=== PATIENT | female | born 1985 | race Caucasian/White ===

== ENCOUNTER 2019-07-26 19:59 | Emergency (ER) | payer BC, SELFPAY ==
--- NOTE | 2019-07-26 19:58 | ECG_ITS ---
APPROVED REPORT Exam: Resting ECG HR:78 bpm ECG Measurements Heart Rate 78 AXES MD 124 P 58 QRSd 86 QRS 42 QT 364 T 49 QTc 414 <Conclusion> Normal sinus rhythm Possible Left atrial enlargement Borderline ECG Electronically signed by : Chapincito Olvera, 07/28/2019 17:13:53
[2019-07-26 20:00] VITALS: BP 134/92; PULSE 84; RESP 16; TEMP 37.4; O2SAT 97; BMI 25.6
[2019-07-26 20:08] VITALS: BP 134/92; PULSE 78; RESP 18; O2SAT 97
--- NOTE | 2019-07-26 20:09 | XR_ITS ---
PROCEDURE: XR CHEST 2V CLINICAL HISTORY: chest pain COMPARISON: No exams were available for comparison FINDINGS: The cardiomediastinal silhouette and pulmonary vascularity are within normal limits. The lungs are clear without infiltrates, suspicious nodules, or pleural effusions. No acute bony abnormalities. IMPRESSION: No acute findings. Dictated by: Devon Hansen MD 07/27/2019 08:44 Electronically signed by Devon Hansen MD in [place] 07/27/2019 08:45
--- NOTE | 2019-07-26 20:38 | HMH.EDCP ---
ED Disposition Clinical Impression: Atypical chest pain Disposition: Home, Self-Care Condition on Discharge: Good Instructions: DI for Atypical Chest Pain Additional Instructions: fluids and see pcp for follow up Prescriptions: Pantoprazole Sodium [Protonix 40mg tablet] 40 mg PO DAILY 30 Days #30 tab Transmission Status: Pending to [facility] Referrals: Provider,Referral, [Referring] - - Critical Care Critical Care Time: No Attestation: On 07/26/19, the high probability of a clinically significant, sudden or life threatening deterioration of the following system(s) required my full and direct attention, intervention and personal management. The time I documented below is in addition to time spent performing reported procedures but includes the following listed in this critical care notation. Medical Decision Making - Medical Records Medical records reviewed: Yes: I reviewed the patient's medical records. - Vic Inquiry Pt receiving controlled substance: No Vital Signs: 07/26/19 20:00 07/26/19 20:08 07/26/19 20:44 Temperature 99.4 F Temperature Source Oral Pulse Rate [Left Radial] 84 79 Pulse Rate [Left] 78 Respiratory Rate 16 18 18 Blood Pressure [Right Arm] 134/92 H 134/92 H 113/72 Blood Pressure Mean [Right Arm] 106 106 85 Blood Pressure Source [Right Arm] Automatic Cuff Blood Pressure Position [Right Arm] Sitting 02 Sat by Pulse Oximetry 97 97 97 Oxygen Delivery Method Room Air Room Air - Lab Data Lab results reviewed: Yes: I reviewed the patient's lab results. Lab Results 07/26/19 20:38: WBC 9.8, RBC 4.81, Hgb 14.7, Hct 42.2, MCV 87.6, MCH 30.6, MCHC 35.0, RDW 13.3, Plt Count 202, MPV 8.2, Neut % (Auto) 59.1, Lymph % (Auto) 33.7, [place] % (Auto) 5.0, Eos % (Auto) 1.4, Baso % (Auto) 0.7, Neut # (Auto) 5.8, Lymph # (Auto) 3.3, [place] # (Auto) 0.5, Eos # (Auto) 0.1, Baso # (Auto) 0.1 07/26/19 20:38: Sodium 141, Potassium 3.7, Chloride 103, Carbon Dioxide 28, Anion Gap 13.7, BUN 23 H, Creatinine 0.80, Estimated Creat Clear 102, Estimated GFR 84, Est GFR ( Amer) 101, Glucose 120 H, Calcium 9.3, Troponin I < 0.01 Result diagrams: 07/26/19 20:38 07/26/19 20:38 Orders (Tests/Meds): ED MEDICATIONS Generic Name Dose Route Start Last Admin Trade Name Freq PRN Reason Stop Dose Admin Sodium Chloride 1,000 mls @ 999 mls/hr 07/26/19 20:05 07/26/19 20:06 Sod Chlor 0.9% 1000ml Bag IV 07/26/19 21:05 999 mls/hr .Q1H1M YAKOV Administration Sodium Chloride 8 ml 07/26/19 21:06 07/26/19 21:09 Sodium Chloride 0.9% 10ml Vial IV 08/25/19 21:05 8 ml NEEDED PRN Administration dilute pepcid Discontinued Medications Generic Name Dose Route Start Last Admin Trade Name Freq PRN Reason Stop Dose Admin Aspirin 324 mg 07/26/19 20:05 07/26/19 20:06 Aspirin 81mg Chewable Tablet PO 07/26/19 20:06 324 mg ONCE ONE Administration Famotidine 20 mg 07/26/19 21:06 07/26/19 21:08 Pepcid 20mg/2ml Vial IV 07/26/19 21:07 20 mg ONCE ONE Administration Metoclopramide HCl 10 mg 07/26/19 21:06 07/26/19 21:08 Reglan 10mg/2ml Vial IVP 07/26/19 21:07 10 mg ONCE ONE Administration ORDERS Category Date Time Status Chest XR 2 view (NOT portable) [XR chest 2V] Stat Exams 07/26/19 20:09 Taken Troponin I Q3H Lab 07/26/19 23:15 Ordered Troponin I Q3H Lab 07/27/19 02:15 Ordered - Radiology Data #1 Image(s): Chest Image Reviewed: Yes I reviewed the patient's radiology image Preliminary Findings: Normal/NAD - ECG Data Tracing #1 I reviewed this ECG and interpreted as documented below: Normal Sinus Rhythm: Yes Ischemic changes: non-specific ST-T wave changes - Reevaluation(s) Time: 21:45 Reevaluation #1: feels better Chest Pain HPI - General Chief Complaint: Chest Pain Stated Complaint: chest pain Time Seen by Provider: 07/26/19 20:10 Mode of Arrival: Ambulatory Source of Information: [facility]
[2019-07-26 20:44] VITALS: BP 113/72; PULSE 79; RESP 18; O2SAT 97
[2019-07-26 20:49] LABS: Basophils # 0.1 K/mm3 (0-0.2); Basophils % 0.7 % (0.1-2.0); Eosinophils # 0.1 K/mm3 (0.0-0.4); Eosinophils % 1.4 % (0.1-12.0); Hematocrit 42.2 % (37.0-47.0); Hemoglobin 14.7 g/dL (12.2-16.2); Lymphocytes # 3.3 K/mm3 (0.7-4.5); Lymphocytes % 33.7 % (10-50); Mean Corpuscular Hemoglobin 30.6 pg (27.0-31.2); Mean Corpuscular Volume 87.6 fl (81-99); Mean Platelet Volume 8.2 fl (7.4-10.4); Monocytes # 0.5 K/mm3 (0.1-1.0); Neutrophils # 5.8 K/mm3 (1.8-7.8); Neutrophils % 59.1 % (37.0-80.0); Platelet Count 202 K/mm3 (142-424); Red Blood Count 4.81 M/mm3 (4.20-5.40); Red Cell Distribution Width 13.3 % (11.5-17.5); White Blood Count 9.8 K/mm3 (4.8-10.8)
[2019-07-26 20:50] LABS: Chloride 103 mmol/L (98-107); Potassium 3.7 mmoL/L (3.5-5.1); Sodium 141 mmol/L (136-145)
[2019-07-26 20:53] LABS: Anion Gap 13.7 mEq/L (5-15); Blood Urea Nitrogen 23 mg/dl (7-17); Calcium 9.3 mg/dl (8.4-10.2); Carbon Dioxide 28 mmol/L (22.0-30.0); Creatinine Clearance Estimated 102 mL/min (50-200); Estimated Glomerular Filt Rate 84 ml/min (>60); GFR (African American) 101 ML/MIN (>60); Glucose 120 mg/dl (74-100)
[2019-07-26 21:09] LABS: Troponin I < 0.01 ng/ml (0.00-0.034)
[2019-07-26 21:37] VITALS: BP 113/74; PULSE 69; RESP 18; O2SAT 96
[2019-07-26 22:00] VITALS: BP 126/72; PULSE 72; RESP 14; TEMP 37.4; O2SAT 98
== END 2019-07-26 22:08 | disposition home or self-care (01) ==
PROVIDERS: Emergency Provider Emergency Medicine; PCP Family Medicine
DX: R07.89 Other chest pain (principal); F17.210 Nicotine dependence, cigarettes, uncomplicated; Z88.5 Allergy status to narcotic agent; Z90.09 Acquired absence of other part of head and neck
CPT/HCPCS: 71046; 80048; 84484; 85025; 93005; 96365; 96375; 99284

== ENCOUNTER 2021-01-12 18:33 | Emergency (ER) | payer OTHER, SELFPAY ==
[2021-01-12 19:24] VITALS: BP 119/77; PULSE 104; RESP 16; TEMP 37; O2SAT 100; BMI 21.9
[2021-01-12 19:30] LABS: Apearance,Urine Cloudy (Clear); Bilirubin,Urine 1+ (Negative); Blood, Urine 2+ (Negative); Color,Urine Dark Yellow (Yellow); Glucose,Urine (UA) Negative (Negative); Ketones,Urine Negative (Negative); Protein,Urine Trace (Negative); Specific Gravity, Urine 1.015 (1.005-1.030); UTC Leukocyte Esterase,Urine 1+ (Negative); Urobilinogen,Urine 4 EU/dl (0.2)
[2021-01-12 19:31] LABS: UTC Nitrate,Urine Negative (Negative)
--- NOTE | 2021-01-12 19:51 | HMH.EDUTC ---
[facility] [place] Clinical Impression: UTI (urinary tract infection) Qualifiers: Urinary tract infection type: site unspecified Hematuria presence: with hematuria Qualified Code(s): N39.0 - Urinary tract infection, site not specified Disposition: Home, Self-Care Condition on Discharge: Good Instructions: Urinary Tract Infection, DI for Urinary Tract Infection (UTI) Additional Instructions: Drink plenty of fluids. Take tylenol or ibuprofen for pain or fever. Take the medications as directed. Follow up with your regular doctor. GO TO THE ER FOR ANY WORSENING SYMPTOMS The pyridium will make your urine turn orange, this is an expected side effect. It will stain your clothes if it comes into contact with them. Prescriptions: Ondansetron [Zofran 4mg ODT] 4 mg PO Q8HP PRN #20 tab PRN Reason: Nausea Transmission Status: Received by [facility] Sulfamethoxazole/Trimethoprim [Bactrim DS tablet] 1 each PO BID 7 Days #14 tab Transmission Status: Received by [facility] Phenazopyridine HCl [Pyridium 200mg Tablet] 200 pow PO TID #6 tab Transmission Status: Received by [facility] Referrals: Lorraine Mahmood APRN [Primary Care Provider] - Time of Disposition: 20:12 Medical Decision Making - Medical Records Medical records reviewed: No: I reviewed the patient's medical records. - Vic Inquiry Pt receiving controlled substance: No Vital Signs: 01/12/21 19:24 01/12/21 20:13 Temperature 98.6 F 98.5 F Temperature Source Oral Pulse Rate 104 H Pulse Rate [Left] 104 H Respiratory Rate 16 15 Blood Pressure 119/77 Blood Pressure [Right Arm] 119/77 Blood Pressure Mean [Right Arm] 91 02 Sat by Pulse Oximetry 100 - Lab Data Lab results reviewed: Yes: I reviewed the patient's lab results. Lab Results 01/12/21 19:29: Urine Color Dark yellow, Urine Appearance Cloudy, Urine pH 8.0, Ur Specific [place] 1.015, Urine Protein Trace, Urine Glucose (UA) Negative, Urine Ketones Negative, Urine Blood 2+, Urine Nitrate Negative, Urine Bilirubin 1+ A, Urine Urobilinogen 4, Ur Leukocyte Esterase 1+ A Orders (Tests/Meds): ED MEDICATIONS Discontinued Medications Generic Name Dose Route Start Last Admin Trade Name Collin PRN Reason Stop Dose Admin Ibuprofen 800 mg 01/12/21 19:55 01/12/21 19:59 Ibuprofen 400 Mg Tablet PO 01/12/21 19:56 800 mg ONCE ONE Administration Levofloxacin 500 mg 01/12/21 19:59 01/12/21 19:59 Levofloxacin 500mg Tab PO 01/12/21 20:00 500 mg ONCE ONE Administration ORDERS Category Date Time Status Urine Culture Stat Micro 01/12/21 19:21 [place] [facility] [place] - General Stated complaint: kidney pain 4-5 days Time Seen by Provider: 01/12/21 19:51 Mode of Arrival: Ambulatory Source of Information: Patient Limitations: No Limitations Description of Symptoms (Recalled from Triage Doc. by RN): pt c/o of flank pain. HEENT Symptoms (Recalled from RN notes): No Resp Symptoms (Recalled from RN notes): No Skin Symptoms (Recalled from RN notes): No MS Symptoms (Recalled from RN notes): No Functional Status (Recalled from RN notes): na - History of Present Illness Provider Complaint: She c/o left lower back pain since yesteday. She has had urinary frequecy too. She denies dysuria. She does get uti's at times but she usually has burning with them too. She denies any history of kidney stones. - Related Data Previous Rx's Medication Instructions Recorded Pantoprazole Sodium [Protonix 40mg 40 mg PO DAILY 30 Days #30 tab 07/26/19 tablet] Ondansetron [Zofran 4mg ODT] 4 mg PO Q8HP PRN #20 tab 01/12/21 Phenazopyridine HCl [Pyridium 200 pow PO TID #6 tab 01/12/21 200mg Tablet] Sulfamethoxazole/Trimethoprim 1 each PO BID 7 Days #14 tab 01/12/21 [Bactrim DS tablet] Allergies Allergy/AdvReac Type Severity Reaction Status Date / Time codeine [CODEINE] Allergy Mild Verified 07/26/19 22:02 -
[2021-01-12 20:13] VITALS: BP 119/77; PULSE 104; RESP 15; TEMP 36.9
== END 2021-01-12 20:15 | disposition home or self-care (01) ==
PROVIDERS: Emergency Provider Nurse Practitioner Family; PCP Nurse Practitioner
DX: N30.00 Acute cystitis without hematuria (principal)
CPT/HCPCS: 81003; 87086; 87088; 87186; 99202; G0463

== ENCOUNTER → 2022-12-09 23:19 | Outpatient (CLI) | payer OTHER, SELFPAY | PROVIDERS: PCP Nurse Practitioner; Visit Provider Nurse Practitioner | DX: L02.412 Cutaneous abscess of left axilla (principal); B95.7 Other staphylococcus as the cause of diseases classified elsewhere | CPT/HCPCS: 87070; 87205 ==